=== PATIENT | male | born 1965 | race Caucasian/White ===

== ENCOUNTER 2016-10-19 20:42 | Emergency (ER) | payer BC ==
[~2016-10-19 20:42] MED LIST: BISOPROLOL FUMA10 MG PO; BUSPAR; DILAUDID2 MG/ML INJ; FLEXERIL10 M1 PO; LORTAB 7.5-5001 TAB PO; MEDROL4 MG/DOSE- PO; NO MEDICATIONS; PERCOCET 10/3251 TAB PO; PROCARDIA XL PO; PROCARDIA10 MG PO; PROCARDIA90 MG/BOTT; SKELAXIN PO; ULTRAM PO; ZEBETA5 MG PO
== END 2016-10-19 20:43 | disposition home or self-care (01) ==
LOC: SED 20:42
DX: S60.455A Superficial foreign body of left ring finger, initial encounter (principal); I10 Essential (primary) hypertension; I25.2 Old myocardial infarction; Z88.5 Allergy status to narcotic agent; Z88.8 Allergy status to other drugs, medicaments and biological substances; X50.9XXA Other and unspecified overexertion or strenuous movements or postures, initial encounter; Y92.89 Other specified places as the place of occurrence of the external cause
CPT/HCPCS: 10120; 99283